=== PATIENT | female | born 2000 | race Caucasian/White ===

== ENCOUNTER 2019-03-08 10:51 | Day surgery (SDC) | payer BC ==
[2019-03-07 09:23] VITALS: BMI 21.8
[2019-03-08] MEDS ORDERED: HEPARIN NA (PORCINE) 5,000 UNITS/ML 1ML VIAL ONE (11:28)
[2019-03-08] MEDS ORDERED: IBUPROFEN 800 MG/8 ML IJ IVPB ONE (12:44)
--- NOTE | 2019-03-08 12:44 | HP ---
History & Physical Update - History History: No Change - Physical Physical: No Change - Assessment Assessment: No Change - Plan Plan: No Change
[2019-03-08] MEDS ORDERED: ACETAMINOPHEN 1000 MG/100 ML VIAL (NON FORMULARY) IVPB ONE (12:45)
[2019-03-08] MEDS ORDERED: DEXTROSE 5%-0.45% SALINE 1,000 ML IV SCH (12:45)
[2019-03-08] MEDS ORDERED: MIDAZOLAM HCL 2 MG/2 ML SINGLE DOSE VIAL ONE (12:49)
[2019-03-08] MEDS ORDERED: PROPOFOL 20 ML ONE (12:49)
[2019-03-08] MEDS ORDERED: DEXAMETHASONE SOD PHOSPHATE 4 MG/1 ML VIAL ONE (13:02)
[2019-03-08] MEDS ORDERED: ceFAZolin SODIUM 1 GM VIAL ONE (13:02)
[2019-03-08] MEDS ORDERED: KETOROLAC TROMETHAMINE 30 MG/1 ML VIAL ONE (13:02)
[2019-03-08] MEDS ORDERED: ceFAZolin SODIUM 1 GM VIAL IVPB ONE (13:05)
[2019-03-08] MEDS ORDERED: ONDANSETRON 4 MG/2 ML VIAL IVPUSH PRN (13:34)
[2019-03-08] MEDS ORDERED: oxyCODONE HCL 5 MG TABLET PO PRN ×2 (13:34)
[2019-03-08] MEDS ORDERED: LACTATED RINGERS SOLUTION 1,000 ML IV SCH (13:45)
[2019-03-08 14:48] VITALS: TEMP 97.9
[2019-03-08 15:54] VITALS: BP 87/59; PULSE 64
--- NOTE | 2019-03-12 04:47 | OP ---
DATE OF OPERATION: 03/08/2019 PREOPERATIVE DIAGNOSIS: Interstitial cystitis. POSTOPERATIVE DIAGNOSIS: Interstitial cystitis. PROCEDURE: Cystoscopy, hydrodistention and bladder installation. SURGEON: Carrington Patterson MD ESTIMATED BLOOD LOSS: Minimal. FINDINGS: Hyperemia and glomerulations consistent with interstitial cystitis. Bladder capacity 800 mL. PREOPERATIVE INDICATIONS: The patient is a 18-year-old female with interstitial cystitis. She comes to the OR for cystoscopy, hydrodistention and installation of medication. OPERATION: Patient was brought to the OR, placed on the table in the supine position, given general anesthesia and IV antibiotics and placed in the modified lithotomy position. The groin was prepped and draped sterilely. Timeout was performed. Cystoscopy was performed. The urethra was normal. In the bladder itself there were no tumors or stones seen. There was hyperemia throughout. Both UOs were visualized with clear efflux. A line transducer was connected to the cystoscope to monitor bladder pressure. The bladder was filled and held at a pressure of 16 mmHg. It was emptied and the capacity was measured at 800 mL. This was done twice more over a period of 10 minutes. After the hydrodistentions there were glomerulations throughout the mucosa consistent with IC. The bladder was emptied and installation consisting of lidocaine, bicarbonate and heparin was infused into the bladder. The scope was removed. The patient was woken up. CARRINGTON PATTERSON M.D. [id number]
== END 2019-03-08 16:08 | disposition home or self-care (01) ==
LOC: JASU-SURG 10:51
PROVIDERS: ATTEND Urology
PROC: 0T7B8ZZ Dilation of Bladder, Via Natural or Artificial Opening Endoscopic (ICD-10-PCS; principal; 2019-03-08 12:30)
PROC: 3E0K8GC Introduction of Other Therapeutic Substance into Genitourinary Tract, Via Natural or Artificial Opening Endoscopic (ICD-10-PCS; 2019-03-08 12:30)
DX: N30.10 Interstitial cystitis (chronic) without hematuria (principal)
CPT/HCPCS: 84703; 94760; J1644

== ENCOUNTER 2024-02-24 04:15 | Day surgery (SDC) | payer BC ==
[2024-02-22 09:48] VITALS: BMI 19.3
[2024-02-24] MEDS ORDERED: LIDOCAINE HCL 1%, 10 MG/ML (20ML VIAL) ONE (07:27)
[2024-02-24] MEDS ORDERED: LIDOCAINE HCL/PF 2% SDV 5ML VIAL ONE (07:29)
[2024-02-24] MEDS ORDERED: MIDAZOLAM HCL 2 MG/2 ML SINGLE DOSE VIAL ONE (07:29)
[2024-02-24] MEDS ORDERED: PROPOFOL 20 ML ONE ×3 (07:29→08:35)
[2024-02-24] MEDS ORDERED: ceFAZolin SODIUM 1 GM VIAL ONE (08:01)
[2024-02-24] MEDS ORDERED: DEXAMETHASONE SOD PHOSPHATE 4 MG/1 ML VIAL ONE (08:01)
[2024-02-24] MEDS: ceFAZolin SODIUM 1 GM VIAL IVPB ONE (08:05)
[2024-02-24] MEDS ORDERED: ONDANSETRON 4 MG/2 ML VIAL ONE (08:16)
[2024-02-24] MEDS ORDERED: PROMETHAZINE HCL 25 MG/1 ML VIAL IVPB PRN (08:40)
[2024-02-24] MEDS ORDERED: ONDANSETRON 4 MG/2 ML VIAL IVPUSH PRN (08:40)
[2024-02-24] MEDS ORDERED: oxyCODONE HCL 5 MG TABLET PO PRN (08:40)
[2024-02-24] MEDS: ACETAMINOPHEN 1000 MG/100 ML BAG IVPB ONE (09:09)
[2024-02-24] MEDS: ACETAMINOPHEN INJECTION 100 ML IVPB ONE (09:10)
[2024-02-24] MEDS: LACTATED RINGERS SOLUTION 1,000 ML IV SCH (09:58)
[2024-02-24] MEDS ORDERED: oxyCODONE HCL 5 MG TABLET ONE (10:43)
[2024-02-24] MEDS: oxyCODONE HCL 5 MG TABLET PO PRN (10:49)
[2024-02-24 12:55] VITALS: RESP 20; TEMP 97.3
[2024-02-24 12:57] VITALS: BP 115/75; PULSE 67
== END 2024-02-24 12:45 | disposition home or self-care (01) ==
LOC: JASU-SURG 04:15
PROVIDERS: ATTEND Urology
PROC: 01HY3MZ Insertion of Neurostimulator Lead into Peripheral Nerve, Percutaneous Approach (ICD-10-PCS; 2024-02-24)
PROC: 0JH70BZ Insertion of Single Array Stimulator Generator into Back Subcutaneous Tissue and Fascia, Open Approach (ICD-10-PCS; principal; 2024-02-24 10:30)
DX: N32.81 Overactive bladder (principal); N39.41 Urge incontinence
CPT/HCPCS: 64561; 64590; C1778; L8679; 76000-TC-FY; 81025; 94760; C1820; C1897; J0131